=== PATIENT | male | born 1995 | race Caucasian/White ===

== ENCOUNTER 2018-08-17 16:45 | Emergency (ER) | payer BC ==
[2018-08-17 17:04] VITALS: BP 128/93; PULSE 98; TEMP 98.1; BMI 26.6
[2018-08-17] MEDS ORDERED: MAGNESIUM CITRATE 300 ML BOTTLE PO ONE (17:19)
[2018-08-17] MEDS ORDERED: IBUPROFEN 600 MG TABLET (FP) PO ONE ×2 (17:19→17:43)
[2018-08-17] MEDS ORDERED: diazePAM 5 MG TABLET PO ONE ×2 (17:19→18:21)
[2018-08-17] MEDS ORDERED: ACETAMINOPHEN 325 MG TABLET (FP) PO ONE (17:20)
--- NOTE | 2018-08-17 17:25 | PDOC ---
History of Present Illness - General Chief Complaint: Constipation Stated Complaint: CONSTIPATION Time Seen by Provider: 08/17/18 16:47 History Source: Patient, Family Exam Limitations: Clinical Condition, Other (autism) - History of Present Illness Initial Comments: 08/17/18 17:20 HPI 23 YOM with h/o autism, chronic constipation presenting with AP, nausea and constipation x 2 days. he has h/o chronic constipation, where he required a cleanout 4 days ago over the weekend and had increased stooling episodes at that time and soiling the bed. clean out usually entails miralax and dulcolex; pt is notable for poor cooperation with enemas. last BM today, with stringy brown stool, but no blood mother notes he started to have some abdominal discomfort, unable to localize, associated with nausea and inability to keep things down by mouth. eats regular diet, previously tried high fiber and prunes, have not worked sees GI at [facility], last colonoscopy done with fecal impaction but no abnormalities noted. called his GI doctor, xray revealed fecal/stool retention and recommended ED eval for disimpaction and management. Denies fever, chills, chest pain, SOB, dizziness, weakness, N, V, D, leg swelling, No sick contacts or travel. No new changes in medications. No suspicious food intake Allergies: None Past Medical History: autism, chronic constipation Social history: Lives with family. No tobacco, ETOH or drug use. Surgical history: none Meds: as documented in EMR Review of systems - performed with patient and family at bedside. Constitutional: no fevers or chills. HEENT: no headache or dizziness. CVS: no cp or syncope. Resp: no sob. No cough. Gastrointestinal: +abdominal pain, nausea or vomiting. +constipation. no diarrhea Genitourinary: no urinary sx, hematuria. MUSCULOSKELETAL: No joint pain and swelling. No neck or back pain. SKIN: no redness or skin changes, no discharge, no rash. No wounds. Hematologic: no easy bruising/bleeding. NEUROLOGIC: No headache, dizziness, LOC or altered mental status. No weakness, numbness or tingling. Psych: +autism Allergic/Immunologic: no allergies All other systems reviewed and negative, or as documented in HPI. Physical exam: General: awake and alert, NAD. HEENT: NCAT, PERRL, EOMI, clear conjunctiva, anicteric, moist mucus membranes, clear oropharynx, no oral lesions.. Neck: neck supple, FROM Resp: CTAB, normal and even respirations, no respiratory distress CVS: RRR, no murmurs, 2+ peripheral pulses throughout, no peripheral edema Abdomen: soft, protuberant, but nondistended, +tympanic, +normoactive bowel sounds. no focal tenderness. Back: nontender, normal inspection and ROM MSK: no edema, VILLAR x4, ROM intact. No clubbing or cyanosis. normal bulk and tone. Neuro: alert, verbal, interactive Skin: warm and well perfused, cap refill <2 sec, normal color Psych: calm and cooperative, autistic 08/17/18 18:22 Past History - Past Medical History Allergies/Adverse Reactions: Allergies Allergy/AdvReac Type Severity Reaction Status Date / Time No Known Allergies Allergy Verified 08/17/18 16:46 Home Medications: Ambulatory Orders Docusate Sodium [Colace -] 100 mg PO TID #21 capsule 08/17/18 Omeprazole Magnesium [Prilosec Otc] 20 mg PO DAILY 08/17/18 Ondansetron [Zofran Odt -] 4 mg SL TID PRN #9 od.tablet 08/17/18 Polyethylene Glycol 3350 [Miralax (For Daily Use) -] 17 gm PO DAILY 08/17/18 Sennosides [Senna -] 1 tab PO BID #15 tablet 08/17/18 Tamsulosin HCl [Flomax] 0.4 mg PO DAILY 08/17/18 COPD: No Psychiatric Problems: Yes (AUTISM) Other medical history: CONSTIPATION - Surgical History Abdominal Surgery: Yes (HERNIA REPAIR ) - Suicide/Smoking/Psychosocial Hx Smoking History: Never smoked Have you smoked in the past 12 months: No Information on smoking cessation initiated: No Hx Alcohol Use: No Drug/Substance Use Hx: No *Physical Exam - Vital Signs Last Vital Signs Temp Pulse Resp BP Pulse Ox 98.1 F 98 H 20 128/93 100 08/17/18 16:46 08/17/18 16:46 08/17/18 16:46 08/17/18 16:46 08/17/18 16:46 Medical Decision Making - Medical Decision Making 08/17/18 17:24 hpi as documented VS reviewed wnl. mildly anxious well appearing, no peritoneal findings, abdomen exam benign history c/w constipation, chronic issue. will trial fecal disimpaction with oral meds, analgesia, low dose valium. mag citrate given too pt poorly cooperative with enemas and suppositories high fiber diet. rx colace/senna hydration encouraged Pt informed of my clinical impression, treatment recommendations and disposition plan. All questions answered to patient's satisfaction and expressed understanding and comfort with this. Reasons for returning to the ED sooner discussed including new or persistent/worsening symptoms with the patient otherwise, follow up with primary care physician. At the time of discharge, the patient is alert, clinically improved, tolerating po and verbalizes understanding of instructions, satisfied with the care received and felt comfortable with the plan. Patient does not suffer from an acute life- threatening medical condition at this time she is safe for outpatient follow- up. 08/17/18 17:50 08/17/18 17:50 *DC/Admit/Observation/Transfer Diagnosis at time of Disposition: Constipation - Discharge Dispostion Disposition: HOME Condition at time of disposition: Improved Decision to Admit order: No - Prescriptions Prescriptions: Docusate Sodium [Colace -] 100 mg PO TID #21 capsule Ondansetron [Zofran Odt -] 4 mg SL TID PRN #9 od.tablet PRN Reason: Nausea Sennosides [Senna -] 1 tab PO BID #15 tablet - Referrals Referrals: Ronnell Thomas DO [Staff Physician] - Mihir Price MD [Staff Physician] - Catherine Valdivia MD [Staff Physician] - - Patient Instructions Printed Discharge Instructions: DI for Constipation Additional Instructions: - You were seen in the emergency department for constipation. Return if worsening symptoms. - You have been prescribed docusate (colace) and senna. These should be taken every day. If you do not have regular bowel movements after 2-3 days, you may add Miralax or Metamucil daily. These can be bought at any pharmacy and are available over the counter. - High fiber diet encouraged: beans, fruits, vegetables, whole grains. - Make sure you are drinking plenty of water, at least 6-8 cups per day ideally. - take zofran every 8 hours as needed for nausea/vomiting. - You should follow up with your primary doctor within the next 2-3 days for evaluation and to help you adjust medications for your constipation. Discharge: Take Colace 100-200 mg up to three times per day. You may take along with Senokot 1-2 tabs, ingest with full glass of water. Maintain fluid intake 6- 8 glasses per day. Please increase fibers in your diet. You may also take Milk of Magnesia 30 mL as needed for constipation, you may repeat in 2 hours again if no bowel movement. - Post Discharge Activity
[2018-08-17] MEDS ORDERED: ACETAMINOPHEN 325 MG TABLET (FP) ONE (17:43)
[2018-08-17] MEDS ORDERED: MAGNESIUM CITRATE 300 ML BOTTLE ONE (17:43)
[2018-08-17] MEDS ORDERED: diazePAM 5 MG TABLET ONE ×2 (17:43→18:35)
== END 2018-08-17 19:14 | disposition home or self-care (01) ==
LOC: FER 16:45
DX: K59.00 Constipation, unspecified (principal); F84.0 Autistic disorder
CPT/HCPCS: 99282-25

== ENCOUNTER 2021-04-06 15:29 | Emergency (ER) | payer BC ==
[2021-04-06 16:14] LABS: CALCIUM 9.2 mg/dl (8.5-10)
[2021-04-06 16:16] VITALS: BP 125/78; PULSE 114; TEMP 98.3; BMI 27.4
[2021-04-06 16:20] LABS: WHITE BLOOD COUNT 9.3 K/mm3 (4.0-10.8)
[2021-04-06 16:24] LABS: HEMOGLOBIN 13.3 GM/dl (11.7-16.9); MCH 30.4 pg (25.7-33.7); MEAN CELL VOLUME 86.9 fl (80-96); MEAN PLT VOLUME 9.2 fl (7.5-11.1); PLATELET COUNT 188 10^3/uL (134-434); RBC 4.37 M/mm3 (4.00-5.60); RDW 11.3 % (11.9-15.9)
[2021-04-06] MEDS ORDERED: cefTRIAXone SODIUM 1 GM VIAL ONE (16:30)
[2021-04-06 16:31] LABS: BILIRUBIN,TOTAL 0.7 mg/dl (0.2-1); CREATININE 0.5 mg/dl (0.55-1.3); TOT PROT 7.6 g/dl (6.4-8.2)
[2021-04-06 16:37] LABS: EPITHELIAL CELLS FEW /hpf
[2021-04-06 16:38] LABS: TRIPLE PHOSPHATE CRYSTAL FEW /hpf (NONE SEEN)
[2021-04-06] MEDS ORDERED: CEFTRIAXONE 1,000 MG in DEXTROSE 5%-WATER - 50 ML IVPB ONE (17:27)
[2021-04-06 18:02] LABS: PLATELET ESTIMATE ADEQUATE
== END 2021-04-06 17:57 | disposition home or self-care (01) ==
LOC: FER 15:29
DX: N30.00 Acute cystitis without hematuria (principal)
CPT/HCPCS: 36415; 74177-TC; 80053; 81003; 81015; 85025; 87086; 99285-25

== ENCOUNTER 2022-12-02 21:18 | Emergency (ER) | payer BC ==
[2022-12-02 21:43] VITALS: BP 145/93; PULSE 86; RESP 18; TEMP 98.2; BMI 27.4
== END 2022-12-02 23:25 | disposition home or self-care (01) ==
LOC: FER 21:18
DX: R30.0 Dysuria (principal); N39.0 Urinary tract infection, site not specified
CPT/HCPCS: 81003; 81015; 87086; 99283-25

== ENCOUNTER 2023-08-09 12:58 | Emergency (ER) | payer BC ==
[2023-08-09 13:10] VITALS: TEMP 98.3; BMI 32.4
[2023-08-09] MEDS ORDERED: ACETAMINOPHEN INJECTION 100 ML IVPB ONE (14:17)
[2023-08-09] MEDS: ACETAMINOPHEN 1000 MG/100 ML BAG IVPB ONE (14:32)
[2023-08-09 14:33] LABS: BASO % 0.2 % (0-2.0); EOS % 0.3 % (0-4.5); HEMATOCRIT 42.1 % (35.4-49); HEMOGLOBIN 14.6 GM/dL (11.7-16.9); LYMPH % 15.7 % (8-40); MCH 29.5 pg (25.7-33.7); MCHC 34.7 g/dl (32.0-35.9); MEAN PLT VOLUME 10.3 fl (7.5-11.1); MONO % 8.5 % (3.8-10.2); NEUT % 75.3 % (42.8-82.8); PLATELET COUNT 154 10^3/uL (134-434); RBC 4.95 M/mm3 (4.00-5.60); RDW 13.4 % (11.9-15.9); WHITE BLOOD COUNT 5.9 K/mm3 (4.0-10.0)
[2023-08-09 14:43] LABS: INR 1.29 (0.83-1.09); PROTHROMBIN TIME (PATIENT) 14.9 SEC (9.7-13.0)
[2023-08-09 14:46] LABS: ACTIVATED PTT 38.3 SECONDS (25.2-36.5)
[2023-08-09 15:00] LABS: POTASSIUM 4.1 mmol/L (3.5-5.1)
[2023-08-09 15:03] LABS: ALBUMIN 3.8 g/dl (3.4-5.0); BLOOD UREA NITROGEN 8.7 mg/dL (7-18); CALCIUM 8.9 mg/dL (8.5-10.1)
[2023-08-09 15:05] LABS: CREATININE 0.5 mg/dL (0.55-1.3)
[2023-08-09 15:07] LABS: BILIRUBIN,TOTAL 0.7 mg/dL (0.2-1); TOT PROT 7.4 g/dl (6.4-8.2)
[2023-08-09 15:17] LABS: ERYTHROCYTE SEDIMENTATION RATE 10 mm/hr (0-10)
[2023-08-09] MEDS ORDERED: MIDAZOLAM HCL 2 MG/2 ML SINGLE DOSE VIAL ONE (15:40)
[2023-08-09] MEDS: MIDAZOLAM HCL 2 MG/2 ML SINGLE DOSE VIAL IVPUSH ONE ×2 (17:10→17:30)
[2023-08-09] MEDS ORDERED: HALOPERIDOL LACTATE 5 MG/ML ONE (17:39)
[2023-08-09 17:49] VITALS: BP 143/97; PULSE 110; RESP 20
[2023-08-09] MEDS: HALOPERIDOL LACTATE 5 MG/ML IM ONE (17:51)
== END 2023-08-09 18:14 | disposition home or self-care (01) ==
LOC: JER 12:58
PROC: 3E033NZ Introduction of Analgesics, Hypnotics, Sedatives into Peripheral Vein, Percutaneous Approach (ICD-10-PCS; principal; 2023-08-09)
PROC: 3E033GC Introduction of Other Therapeutic Substance into Peripheral Vein, Percutaneous Approach (ICD-10-PCS; 2023-08-09)
PROC: 3E033GC Introduction of Other Therapeutic Substance into Peripheral Vein, Percutaneous Approach (ICD-10-PCS; 2023-08-09)
DX: K59.09 Other constipation (principal); R10.9 Unspecified abdominal pain
CPT/HCPCS: 36415; 80053; 83690; 85025; 85610; 85651; 85730; 86140; 86850; 86900; 86901; 99284-25; J0131

== ENCOUNTER 2023-09-24 04:42 | Day surgery (SDC) | payer BC ==
[2023-09-24 08:43] VITALS: RESP 18; BMI 31.7
[2023-09-24] MEDS ORDERED: MIDAZOLAM HCL 2 MG/2 ML SINGLE DOSE VIAL ONE ×2 (09:23→09:30)
[2023-09-24 10:49] VITALS: TEMP 98
[2023-09-24 10:51] VITALS: PULSE 81
[2023-09-24 10:53] VITALS: BP 113/70
== END 2023-09-24 10:53 | disposition home or self-care (01) ==
LOC: JASU-ENDO 04:42
PROVIDERS: ATTEND Student in an Organized Health Care Education/Training Program
PROC: 0DB78ZX Excision of Stomach, Pylorus, Via Natural or Artificial Opening Endoscopic, Diagnostic (ICD-10-PCS; 2023-09-24)
PROC: 0DB68ZX Excision of Stomach, Via Natural or Artificial Opening Endoscopic, Diagnostic (ICD-10-PCS; 2023-09-24)
PROC: 0DB98ZX Excision of Duodenum, Via Natural or Artificial Opening Endoscopic, Diagnostic (ICD-10-PCS; principal; 2023-09-24 09:00)
DX: K29.50 Unspecified chronic gastritis without bleeding (principal)
CPT/HCPCS: 88305-TC; 88342-TC